=== PATIENT | male | born 1960 | race Two or more races ===

== ENCOUNTER 2022-07-20 10:24 | Emergency (ER) | payer OTHER ==
[2022-07-20 10:36] VITALS: BP 158/68; PULSE 70; RESP 18; TEMP 98.3; BMI 26.9
[2022-07-20] MEDS ORDERED: ACETAMINOPHEN 500 MG TABLET (FP) PO ONE (10:50)
[2022-07-20] MEDS ORDERED: LIDOCAINE 5% TOPICAL PATCH TP ONE ×2 (10:50→10:52)
[2022-07-20] MEDS ORDERED: IBUPROFEN 400 MG TABLET (FP) PO ONE ×2 (10:52→12:27)
[2022-07-20 12:23] LABS: BASO % 0.7 % (0-2.0); EOS % 0.9 % (0-4.5); HEMATOCRIT 39.5 % (35.4-49); HEMOGLOBIN 13.2 GM/dL (11.7-16.9); MCH 29.3 pg (25.7-33.7); MCHC 33.4 g/dl (32.0-35.9); MEAN CELL VOLUME 87.6 fl (80-96); MEAN PLT VOLUME 8.5 fl (7.5-11.1); MONO % 6.6 % (3.8-10.2); NEUT % 57.8 % (42.8-82.8); PLATELET COUNT 201 10^3/uL (134-434); RBC 4.51 M/mm3 (4.00-5.60); RDW 13.8 % (11.9-15.9); WHITE BLOOD COUNT 7.3 K/mm3 (4.0-10.0)
[2022-07-20] MEDS ORDERED: LIDOCAINE 5% TOPICAL PATCH ONE (12:27)
[2022-07-20] MEDS ORDERED: ACETAMINOPHEN 325 MG TABLET (FP) ONE (12:27)
[2022-07-20 12:37] LABS: PH,URINE 5.5 (5.0-8.0); URINE APPEARANCE CLEAR; URINE BILIRUBIN NEGATIVE (NEGATIVE); URINE COLOR YELLOW; URINE GLUCOSE (UA) 3+ (NEGATIVE); URINE KETONE TRACE (NEGATIVE); URINE LEUK ESTERASE NEGATIVE (NEGATIVE); URINE NITRITE NEGATIVE (NEGATIVE); URINE PROTEIN NEGATIVE (NEGATIVE); URINE UROBILINOGEN 0.2 mg/dL (0.2-1.0)
[2022-07-20 12:49] LABS: ALBUMIN 3.6 g/dl (3.4-5.0); BLOOD UREA NITROGEN 19.4 mg/dL (7-18)
[2022-07-20 12:52] LABS: CREATININE 0.8 mg/dL (0.55-1.3)
[2022-07-20 12:54] LABS: BILIRUBIN,TOTAL 0.5 mg/dL (0.2-1); TOT PROT 7.1 g/dl (6.4-8.2)
[2022-07-20] MEDS ORDERED: LIDOCAINE PATCH REMOVAL MC ONE ×2 (22:00)
== END 2022-07-20 14:49 | disposition home or self-care (01) ==
LOC: JER 10:24
DX: M54.6 Pain in thoracic spine (principal)
CPT/HCPCS: 36415; 71046-TC-FY; 80053; 81003; 84484; 85025; 87086; 93005; 93010; 99285-25